=== PATIENT | female | born 1990 | race African-American/Black ===

== ENCOUNTER 2018-10-01 20:00 | Inpatient (IN) | payer MEDICAID ==
[~2018-10-01] VITALS: Ht 152.4 cm; Wt 137.9 kg
[2018-10-02] MEDS ORDERED: FUROSEMIDE 40MG/4ML VIAL IV ONE (01:00)
[2018-10-02 01:31] LABS: BASOPHILS % 0.8 % (0.0-2.0); HEMATOCRIT. 44.4 % (36.0-48.0); HEMOGLOBIN. 14.3 g/dL (12.0-16.0); LYMPHOCYTES % 32.6 % (20.0-50.0); MEAN CORPUSCULAR HEMOGLOBIN 27.9 pg (28.0-32.0); MEAN CORPUSCULAR VOLUME 86.7 fL (81.0-99.0); MEAN PLATELET VOLUME 9.8 fl (7.4-10.4); MONOCYTES % 10.2 % (2.0-8.0); NEUTROPHILS % 53.4 % (40.0-76.0); PLATELET 211 x1000/uL (130-400); RED BLOOD CELL COUNT 5.12 mill/uL (4.2-5.4); RED CELL DISTRIBUTION WIDTH 14.4 % (11.6-14.6)
[2018-10-02 01:36] LABS: CHLORIDE 102 mEq/L (98-107)
[2018-10-02 03:25] LABS: CLARITY URINE CLEAR (CLEAR); COLOR URINE YELLOW (YELLOW); KETONES URINE NEGATIVE (NEGATIVE); LEUKOCYTE ESTERASE URINE NEGATIVE (NEGATIVE); NITRITE URINE NEGATIVE (NEGATIVE); OCCULT BLOOD URINE NEGATIVE (NEGATIVE); PH URINE 7.5 (4.5-8.0); PROTEIN URINE NEGATIVE (NEGATIVE); SPECIFIC GRAVITY URINE 1.016 (1.005-1.030); UROBILINOGEN URINE 0.2 E.U./dL (0.2-1.0)
[2018-10-02] MEDS ORDERED: IOHEXOL-350 100 ML BOTTLE ONE ×2 (03:51→06:27)
[2018-10-02 04:01] LABS: BG BASE EXCESS 0.3 mmol/L (-2.0-2.0); BG CARBOXYHEMOGLOBIN 0.6 % (0.5-1.5); BG DEOXYHEMOGLOBIN 11.7 % (0.0-5.0); BG FRACTION INSPIRED OXYGEN 21; BG HCO3 ACT 27.2 mmol/L (22.0-26.0); BG METHEMOGLOBIN 0.3 % (0.0-1.5); BG OXYGEN SATURATION 88.2 % (92.0-98.5); BG OXYHEMOGLOBIN 87.4 % (94.0-97.0); BG PCO2 53.1 mmHg (35.0-45.0); BG PH 7.328 (7.350-7.450); BG PO2 59.1 mmHg (75.0-100.0); BG SAMPLE SITE RIGHT RADIAL; BG TOTAL HEMOGLOBIN 14.9 g/dL (12.0-18.0); BG VENT MODE ROOM AIR
[2018-10-02 08:00] VITALS: BP 153/97
[2018-10-02 09:00] VITALS: BP 153/97
[2018-10-02] MEDS ORDERED: DOCUSATE SODIUM 100MG CAPSULE PO PRN (09:00)
[2018-10-02] MEDS ORDERED: NITROGLYCERIN 0.4MG TABLET SL SL PRN (09:00)
[2018-10-02] MEDS ORDERED: CLONIDINE 0.1MG TABLET PO PRN (09:00)
[2018-10-02] MEDS ORDERED: GUAIFENESIN/DM 600MG/30MG ER TAB 12HR PO SCH (09:00)
[2018-10-02] MEDS ORDERED: FAMOTIDINE 20MG TABLET PO SCH (09:00)
[2018-10-02] MEDS ORDERED: IPRATROPIUM/ALBUTEROL 0.5-3(2.5)MG/3ML NEB INH PRN (09:00)
[2018-10-02] MEDS ORDERED: KETOROLAC 15MG/ML VIAL IV PRN (09:00)
[2018-10-02] MEDS ORDERED: GUAIFENESIN 200MG/10ML SUGAR FREE UDC PO PRN (09:00)
[2018-10-02] MEDS ORDERED: ONDANSETRON HCL 4MG/2ML INJ IV PRN (09:00)
[2018-10-02] MEDS ORDERED: MAGNESIUM/ALUMINUM HYDROXIDE/SIMETHICONE 30ML UDC PO PRN (09:00)
[2018-10-02] MEDS ORDERED: ACETAMINOPHEN 325MG TABLET PO PRN (09:00)
[2018-10-02] MEDS ORDERED: ZOLPIDEM TARTRATE 5MG TABLET PO PRN (09:00)
[2018-10-02] MEDS ORDERED: IPRATROPIUM/ALBUTEROL 0.5-3(2.5)MG/3ML NEB HHN SCH (10:00)
[2018-10-02 12:00] VITALS: BP 105/56
[2018-10-02 14:14] LABS: *AMPHETAMINES SCREEN URINE NEGATIVE (NEGATIVE); *BARBITURATES SCREEN URINE NEGATIVE (NEGATIVE); *BENZODIAZEPINES SCREEN URINE NEGATIVE (NEGATIVE); *COCAINE SCREEN URINE NEGATIVE (NEGATIVE); METHADONE URINE SCREEN NEGATIVE (NEGATIVE)
[2018-10-02 14:15] LABS: OPIATES URINE SCREEN NEGATIVE (NEGATIVE); PHENCYCLIDINE URINE SCREEN NEGATIVE (NEGATIVE)
[2018-10-02 14:18] LABS: CANNABINOID URINE SCREEN PRESUMTIVE POSITIVE (NEGATIVE)
== END 2018-10-02 12:45 | disposition left against medical advice (07) | DRG 133 ==
LOC: ER 20:00 → 5WST 10-02 04:49 → EDBEDREQTM 10-02 04:53 → EDBEDREQ 10-02 04:53 → ENRESERV 10-02 07:44
PROVIDERS: ADMIT Internal Medicine; ATTEND Internal Medicine
DX: J96.01 Acute respiratory failure with hypoxia (principal); E66.01 Morbid (severe) obesity due to excess calories; E28.2 Polycystic ovarian syndrome; I10 Essential (primary) hypertension; F12.90 Cannabis use, unspecified, uncomplicated; R60.0 Localized edema; T50.996A Underdosing of other drugs, medicaments and biological substances, initial encounter; Z68.43 Body mass index [BMI] 50.0-59.9, adult; Y92.89 Other specified places as the place of occurrence of the external cause
CPT/HCPCS: 36415; 36600; 71045; 71275; 80305; 82375; 82805; 83036; 83880; 93005; 93970; 96374; 99285; J1940; Q9967

== ENCOUNTER 2020-04-18 12:32 | Emergency (ER) | payer MEDICAID ==
[~2020-04-18] VITALS: Ht 152.4 cm; Wt 150.0 kg
[2020-04-18] MEDS ORDERED: ACETAMINOPHEN 325MG TABLET PO ONE (14:30)
[2020-04-18] MEDS ORDERED: KETOROLAC 15MG/ML VIAL IV ONE (14:45)
[2020-04-18 15:30] VITALS: BP 120/97
== END 2020-04-18 16:29 | disposition home or self-care (01) ==
LOC: ER 12:54
DX: S76.112A Strain of left quadriceps muscle, fascia and tendon, initial encounter (principal); W18.49XA Other slipping, tripping and stumbling without falling, initial encounter; Y93.E1 Activity, personal bathing and showering; Y92.012 Bathroom of single-family (private) house as the place of occurrence of the external cause; R03.0 Elevated blood-pressure reading, without diagnosis of hypertension
CPT/HCPCS: 73552; 96374; 99283; J1885

== ENCOUNTER 2023-06-29 18:38 | Emergency (ER) | payer MEDICAID, OTHER ==
[~2023-06-29] VITALS: Ht 167.6 cm; Wt 127.0 kg
[~2023-06-29 18:38] MED LIST: CEPH500C2 MT
[2023-06-29 18:47] VITALS: BP 176/114; PULSE 93; RESP 16; TEMP 98.2; O2SAT 95
[2023-06-29] MEDS ORDERED: ACET-2708 MT (20:32)
[2023-06-29] MEDS ORDERED: IBUP-2030 MT (20:32)
== END 2023-06-29 22:35 | disposition home or self-care (01) ==
LOC: ER 18:38
DX: S01.91XA Laceration without foreign body of unspecified part of head, initial encounter (principal); R51.9 Headache, unspecified; I10 Essential (primary) hypertension; V49.59XA Passenger injured in collision with other motor vehicles in traffic accident, initial encounter; Y93.89 Activity, other specified; Y92.89 Other specified places as the place of occurrence of the external cause; Y99.8 Other external cause status
CPT/HCPCS: 12011; 71045; 99284

== ENCOUNTER 2023-07-25 15:19 | Emergency (ER) | payer MEDICAID ==
[~2023-07-25] VITALS: Ht 152.4 cm; Wt 144.0 kg
[~2023-07-25 15:19] MED LIST changes: +ACET-2708 MT; +IBUP-2030 MT
[2023-07-25 15:35] VITALS: O2SAT 92
[2023-07-25] MEDS ORDERED: SULF1TAB48 MT (16:14)
[2023-07-25] MEDS: HYDROCODONE/ACETAMINOPHEN 5/325MG TABLET PO ONE (16:43)
[2023-07-25] MEDS: KETOROLAC 30MG/ML VIAL IM ONE (17:04)
[2023-07-25 17:23] VITALS: BP 187/133; PULSE 89; RESP 22; TEMP 98.8
[2023-07-25] MEDS: CLONIDINE 0.1MG TABLET PO ONE (17:39)
[2023-07-25 17:46] LABS: BASOPHILS % 0.9 % (0.0-2.0); EOSINOPHILS % 2.3 % (0.0-5.0); HEMATOCRIT. 55.4 % (36.0-48.0); HEMOGLOBIN. 17.8 g/dL (12.0-16.0); LYMPHOCYTES % 24.1 % (20.0-50.0); MEAN CORPUSCULAR HEMOGLOBIN 27.5 pg (28.0-32.0); MEAN CORPUSCULAR HGB CONC 32.2 g/dL (31.0-37.0); MEAN CORPUSCULAR VOLUME 85.4 fL (81.0-99.0); MEAN PLATELET VOLUME 8.7 fl (7.4-10.4); NEUTROPHILS % 64.7 % (40.0-76.0); PLATELET 162 x1000/uL (130-400); RED BLOOD CELL COUNT 6.49 mill/uL (4.2-5.4); RED CELL DISTRIBUTION WIDTH 18.7 % (11.6-14.6); WHITE BLOOD COUNT 6.7 x1000/uL (4.5-11.0)
[2023-07-25 18:08] LABS: ALANINE AMINOTRANSFERASE < 7 IU/L (10-49); ALBUMIN 4.4 g/dL (3.2-4.8); ASPARTATE AMINOTRANSFERASE 14 IU/L (<34); BILIRUBIN TOTAL 0.7 mg/dL (0.1-1.0); CALCIUM 8.9 mg/dL (8.7-10.4); CARBON DIOXIDE 34 mEq/L (21-32); CHLORIDE 102 mEq/L (98-107); CREATININE 0.7 mg/dL (0.6-1.0); GLUCOSE 92 mg/dL (70-105); POTASSIUM 3.7 mEq/L (3.5-5.1); PROTEIN TOTAL 7.4 g/dL (6.0-8.3); SODIUM 137 mEq/L (136-145); UREA NITROGEN BLOOD 7 mg/dL (9-23)
[2023-07-25] MEDS ORDERED: AMLO5TAB88 MT (18:52)
== END 2023-07-25 21:08 | disposition home or self-care (01) ==
LOC: ER 15:19
DX: L02.11 Cutaneous abscess of neck (principal); J45.909 Unspecified asthma, uncomplicated; I10 Essential (primary) hypertension
CPT/HCPCS: 99283; 80053; 81025; 85025; 36415; J1885

== ENCOUNTER 2023-09-26 15:34 | Emergency (ER) | payer MEDICAID ==
[~2023-09-26] VITALS: Ht 152.4 cm; Wt 141.0 kg
[~2023-09-26 15:34] MED LIST changes: +AMLO5TAB88 MT; +SULF1TAB48 MT
[2023-09-26 16:14] VITALS: O2SAT 85
[2023-09-26] MEDS ORDERED: LORA10TA64 MT (20:11)
[2023-09-26] MEDS ORDERED: FLUT9.9S BOTHNSTRLS (20:11)
[2023-09-26] MEDS ORDERED: AZIT250T12 MT (20:11)
[2023-09-26] MEDS ORDERED: IBUP-2030 MT (20:11)
[2023-09-26] MEDS ORDERED: ACET-2708 MT (20:11)
[2023-09-26] MEDS ORDERED: AMLO5TAB88 MT (20:11)
[2023-09-26] MEDS ORDERED: SULF15DR26 RIGHTEYE (20:17)
[2023-09-26 20:20] VITALS: BP 161/110; PULSE 96; RESP 16
== END 2023-09-26 20:20 | disposition home or self-care (01) ==
LOC: ER 15:34
DX: H57.89 Other specified disorders of eye and adnexa (principal); R09.81 Nasal congestion; J02.9 Acute pharyngitis, unspecified; J45.909 Unspecified asthma, uncomplicated; I10 Essential (primary) hypertension; F17.210 Nicotine dependence, cigarettes, uncomplicated; F12.10 Cannabis abuse, uncomplicated
CPT/HCPCS: 99285